=== PATIENT | female | born 1975 | race Caucasian/White ===

== ENCOUNTER → 2017-04-21 | Outpatient (CLI) | payer OTHER ==
--- NOTE | 2017-04-21 11:12 | RAD ---
Indication: Chronic pansinusitis. Axial imaging through the paranasal sinuses was performed without contrast. Sagittal and coronal reformations were also performed. The frontal sinus is clear. Postsurgical changes of bilateral ethmoidectomy is seen. The sphenoid sinus is clear. Bilateral maxillary sinuses are clear. No mucosal thickening or air-fluid levels are seen. The mastoids are well aerated. The nasal septum is midline. Impression: Postsurgical changes. There is no evidence of sinusitis. PQRS Compliance Statement: One or more of the following individualized dose reduction techniques were utilized for this examination: 1. Automated exposure control 2. Adjustment of the mA and/or kV according to patient size 3. Use of iterative reconstruction technique
== END | disposition home or self-care (01) ==
LOC: CT 09:12
PROVIDERS: ATTEND Otolaryngology
DX: J32.4 Chronic pansinusitis (principal); Z98.890 Other specified postprocedural states
CPT/HCPCS: 70486

== ENCOUNTER 2017-06-25 13:05 | Day surgery (SDC) | payer OTHER ==
[~2017-06-25 13:05] MED LIST: LIDOCAINE 1% PF 2 ML VIAL. ID; MORPHINE SULFATE 2 MG/ML DISP.SYRIN. IV; PROCHLORPERAZINE 10 MG/2 ML VIAL. IV; ceFAZolin 2GM PREMIX 2 GM/50 ML BAG IV
[2017-06-25 13:47] LABS: NEG OBC UR NEG; POS OBC UR POS; U PREG PATIENT NEGATIVE (NEG)
[2017-06-25] MEDS: IV RINGERS,LACTATED 1000ML 1,000 ML IV ×2 (13:47)
[2017-06-25] MEDS ORDERED: SUCCINYLCHOLINE 200 MG/10 ML VIAL. ×2 (14:20)
[2017-06-25] MEDS: OXYMETAZOLINE 0.05% NASAL SPRAY 30ML BOTTLE. NS ×2 (14:23)
[2017-06-25] MEDS ORDERED: ONDANSETRON PF 4 MG/2 ML VIAL. ×2 (14:24)
[2017-06-25] MEDS ORDERED: FAMOTIDINE 20 MG/2 ML VIAL ×2 (14:24)
[2017-06-25] MEDS ORDERED: DEXAMETHASONE SOD PHOS 20 MG/5 ML VIAL. ×2 (14:24)
[2017-06-25] MEDS ORDERED: PROPOFOL 20 ML IV ×2 (14:24)
[2017-06-25] MEDS ORDERED: LIDOCAINE 2% PF Vial for OR 5 ML VIAL. ×2 (14:24)
[2017-06-25] MEDS ORDERED: MIDAZOLAM HCL/PF 2 MG/2 ML VIAL. ×2 (14:24)
[2017-06-25] MEDS ORDERED: fentaNYL PF VIAL 100 MCG/2 ML VIAL ×4 (14:24→16:00)
[2017-06-25] MEDS ORDERED: MUPIROCIN 2 % NASAL OINTMENT 22GM TUBE. NS ×2 (14:46)
[2017-06-25] MEDS ORDERED: OXYMETAZOLINE 0.05% NASAL SPRAY 30ML BOTTLE. NS ×2 (14:46)
[2017-06-25] MEDS ORDERED: PHENYLEPHRINE 0.25% NASAL SPRAY 15ML BOTTLE. NS ×2 (14:46)
[2017-06-25] MEDS ORDERED: 0.9 % SODIUM CHLORIDE 50 ML VIAL. IJ ×2 (15:15)
[2017-06-25] MEDS ORDERED: VECURONIUM BOLUS 10 MG VIAL. IV ×2 (15:15)
[2017-06-25] MEDS: EPINEPHrine VIAL 30 MG/30 ML VIAL ×2 (15:18)
[2017-06-25] MEDS: LIDOCAINE 1%/EPI 1:100,000 20 ML VIAL. ×2 (15:18)
[2017-06-25] MEDS ORDERED: SEVOFLURANE > 120 MINUTES. IH ×2 (15:19)
[2017-06-25] MEDS ORDERED: NEOSTIGMINE 10 MG/10 ML VIAL. ×2 (16:41)
[2017-06-25] MEDS ORDERED: GLYCOPYRROLATE 1 MG/5 ML VIAL. ×2 (16:41)
[2017-06-25] MEDS: fentaNYL PF VIAL 100 MCG/2 ML VIAL IV ×8 (17:26→19:05)
[2017-06-25] MEDS: oxyCODONE/APAP 5/325 1 TAB TABLET PO ×2 (18:05)
[2017-06-25] MEDS: ONDANSETRON PF 4 MG/2 ML VIAL. IV ×2 (18:07)
== END 2017-06-25 19:18 | disposition home or self-care (01) ==
LOC: SURG 13:05
DX: J32.4 Chronic pansinusitis (principal); J34.3 Hypertrophy of nasal turbinates; K21.9 Gastro-esophageal reflux disease without esophagitis; M19.90 Unspecified osteoarthritis, unspecified site; F17.200 Nicotine dependence, unspecified, uncomplicated; Z87.39 Personal history of other diseases of the musculoskeletal system and connective tissue; Z72.89 Other problems related to lifestyle
CPT/HCPCS: 30520; 81025; 87071; 87075; 87186; 87205; C1713; C1769; J0171; J0330; J0690; J1100; J2250; J2405; J2704; J2710; J3010; J3490; J7120; S0028

== ENCOUNTER → 2018-03-15 | Outpatient (CLI) | payer OTHER ==
[2017-06-25 18:24] VITALS: BP 146/66
[~2018-03-15] MED LIST changes: +DOCU-109 PO; +LEVO500T59 PO; -LIDOCAINE 1% PF 2 ML VIAL. ID; -MORPHINE SULFATE 2 MG/ML DISP.SYRIN. IV; +ONDA4TAB10 SL; +OXYC-323 PO; +OXYM15MI4 NS; +PRED20TA PO; -PROCHLORPERAZINE 10 MG/2 ML VIAL. IV; -ceFAZolin 2GM PREMIX 2 GM/50 ML BAG IV
--- NOTE | 2018-03-15 16:12 | RAD ---
DATE: 03/15/2018 EXAM: MAMMO KIRSTIE SCREENING BILATERAL HISTORY: Routine screening. Baseline evaluation. COMPARISON: No prior exams. This study was interpreted with the benefit of Computerized Aided Detection (CAD). Breast Density: HETERO The breast parenchyma is heterogenously dense, which could reduce sensitivity of mammography. Breast parenchyma level C. FINDINGS: Multiple small masses bilaterally are present and smoothly marginated. No suspicious, dominant mass. No architectural distortion. No suspicious calcification cluster. IMPRESSION: Benign findings. BI-RADS CATEGORY: 2 BENIGN FINDING(S) RECOMMENDED FOLLOW-UP: 12M 12 MONTH FOLLOW-UP PQRS compliance statement: Patient information was entered into a reminder system with a target due date in one year for the next mammogram. Mammography is a sensitive method for finding small breast cancers, but it does not detect them all and is not a substitute for careful clinical examination. A negative mammogram does not negate a clinically suspicious finding and should not result in delay in biopsying a clinically suspicious abnormality. "Our facility is accredited by the [employer] Mammography Program."
== END | disposition home or self-care (01) ==
LOC: MAMMO 14:53
PROVIDERS: ATTEND Family Medicine
DX: Z12.31 Encounter for screening mammogram for malignant neoplasm of breast (principal)
CPT/HCPCS: 77063; 77067

== ENCOUNTER → 2018-08-31 | Outpatient (CLI) | payer OTHER ==
[2017-06-25 18:24] VITALS: BP 146/66
[~2018-08-31] MED LIST changes: -OXYC-323 PO; +OXYC1TAB15 PO
== END | disposition home or self-care (01) ==
LOC: LAB 02:50
PROVIDERS: ATTEND Family Medicine
DX: R74.0 Nonspecific elevation of levels of transaminase and lactic acid dehydrogenase [LDH] (principal)
CPT/HCPCS: 36415; 86705; 86709; 86803; 87340

== ENCOUNTER → 2018-09-16 | Outpatient (CLI) | payer OTHER ==
[2017-06-25 18:24] VITALS: BP 146/66
--- NOTE | 2018-09-16 09:05 | RAD ---
INDICATION: Thyromegaly COMPARISON: None. TECHNIQUE: Grayscale and color ultrasound images obtained of the thyroid. FINDINGS: Right Lobe: 44 x 14 mm. Left Lobe: 42 x 14 mm. No worrisome thyroid mass. IMPRESSION: 1. No worrisome thyroid nodules identified. Electronically signed by: Abdullahi Baird MD (09/16/2018 9:02 AM) [id number]
== END | disposition home or self-care (01) ==
LOC: US 07:08
PROVIDERS: ATTEND Family Medicine
DX: E01.0 Iodine-deficiency related diffuse (endemic) goiter (principal)
CPT/HCPCS: 76536

== ENCOUNTER → 2018-10-21 | Day surgery (SDC) | payer OTHER ==
[~2018-10-21] MED LIST changes: +CETI10TA22 PO; +HYDROmorphone 2 MG/ML VIAL IV PRN; +IV RINGERS,LACTATED 1000ML 1,000 ML IV SCH; +LIDOCAINE 1% PF 2 ML VIAL. ID PRN; +MORPHINE SULFATE 2 MG/ML VIAL. IV PRN; +PANT20TA2 PO; +PROCHLORPERAZINE 10 MG/2 ML VIAL. IV PRN; +PROPOFOL 20 ML IV ONE; +fentaNYL PF VIAL 100 MCG/2 ML VIAL IV PRN
[2018-10-21 11:38] LABS: U PREG PATIENT NEGATIVE (NEG)
[2018-10-21 13:10] VITALS: BP 135/80
== END ==
LOC: ENDOS 11:15
PROVIDERS: ATTEND Internal Medicine Gastroenterology
DX: K29.50 Unspecified chronic gastritis without bleeding (principal); K21.9 Gastro-esophageal reflux disease without esophagitis; M19.90 Unspecified osteoarthritis, unspecified site; Z72.89 Other problems related to lifestyle; Z90.49 Acquired absence of other specified parts of digestive tract; Z98.890 Other specified postprocedural states; Z80.3 Family history of malignant neoplasm of breast
CPT/HCPCS: 43235; 81025; J2704

== ENCOUNTER → 2018-11-05 | Outpatient (CLI) | payer OTHER ==
[2018-10-21 13:10] VITALS: BP 135/80
[~2018-11-05] MED LIST changes: -HYDROmorphone 2 MG/ML VIAL IV PRN; -IV RINGERS,LACTATED 1000ML 1,000 ML IV SCH; -LIDOCAINE 1% PF 2 ML VIAL. ID PRN; -MORPHINE SULFATE 2 MG/ML VIAL. IV PRN; -PROCHLORPERAZINE 10 MG/2 ML VIAL. IV PRN; -PROPOFOL 20 ML IV ONE; -fentaNYL PF VIAL 100 MCG/2 ML VIAL IV PRN
--- NOTE | 2018-11-05 15:39 | RAD ---
Gastric emptying nuclear medicine study History:Nausea with right upper quadrant abdominal pain for 6 months. Technique: After oral ingestion of a meal containing 2.1 mCi of technetium 99m sulfur colloid, anterior and posterior planar images of the upper abdomen were performed immediately and at 1 hour and 2 hour and 3 hour and 4 hour increments. Percent retention of radiotracer activity was measured and calculated at 1 hour and 2 hour and 3 hour and 4 hour increments. Half time gastric clearance was measured and calculated. Findings: Percent retention at 1 hour is 46%. Normal range is 34.8% to 91%. Percent retention at 2 hours is 26%. Normal range is 2.7% to 60%. Percent retention at 3 hours is 7%. Normal range is 0.5% to 28%. Percent retention at 4 hours is 0%. Normal range is 0% to 10%. Half time gastric clearance is 50 minutes. Normal range is 45 to 90 minutes. Impression: No delay in gastric emptying is seen. Electronically signed by: Aftab Carbajal MD (11/05/2018 3:36 PM) [place] [id number]
== END | disposition home or self-care (01) ==
LOC: NM 08:45
PROVIDERS: ATTEND Internal Medicine Gastroenterology
DX: R11.0 Nausea (principal); R10.11 Right upper quadrant pain; Z87.891 Personal history of nicotine dependence
CPT/HCPCS: 78264; A9541

== ENCOUNTER → 2018-11-24 | Outpatient (CLI) | payer OTHER ==
[2018-10-21 13:10] VITALS: BP 135/80
--- NOTE | 2018-11-24 09:44 | RAD ---
CLINICAL HISTORY: Right upper quadrant pain, elevated LFTs COMPARISON: None available. TECHNIQUE: Ultrasound of the upper abdomen was performed. FINDINGS: The liver measures 20.1 cm in length in the right mid clavicular line. Hepatic margin is smooth. Increased hepatic echogenicity with limited sonographic penetration consistent with hepatic steatosis. No obvious liver lesion although evaluation limited. Flow is seen within the portal vein. There has been a cholecystectomy. The common bile duct measures up to 0.8 cm. The spleen is is upper limits normal in size measuring 11.9 cm in length. The visualized pancreas is unremarkable although the partially obscured by overlying bowel gas.. The right kidney measures 11.1 cm in bipolar length. The left kidney measures 12.1 cm in bipolar length. No focal renal lesion. No hydronephrosis. Visualized portions of the abdominal aorta and inferior vena cava are unremarkable although the majority is obscured by overlying bowel gas. There is no free fluid in the upper abdomen. IMPRESSION: 1. Hepatomegaly and hepatic steatosis. 2. Within the constraints of cholecystectomy, no biliary ductal dilatation. 3. Spleen is top normal in size. Electronically signed by: Luis Fernando Kinney MD (11/24/2018 9:41 AM) [facility]
== END | disposition home or self-care (01) ==
LOC: US 07:40
PROVIDERS: ATTEND Internal Medicine Gastroenterology
DX: K76.0 Fatty (change of) liver, not elsewhere classified (principal); R16.0 Hepatomegaly, not elsewhere classified; R94.5 Abnormal results of liver function studies; Z90.49 Acquired absence of other specified parts of digestive tract
CPT/HCPCS: 76700

== ENCOUNTER → 2018-12-01 | Outpatient (CLI) | payer OTHER ==
[2018-10-21 13:10] VITALS: BP 135/80
[~2018-12-01] MED LIST changes: +CONTRAST GIVEN. MC PRN; +IOHEXOL 240 MG/ML 50ML VIAL. PO ONE; +IOHEXOL 300 MG/ML 100ML VIAL. IV ONE
--- NOTE | 2018-12-01 11:05 | RAD ---
CT ABD PELV W/ORAL IV CONTRAST Indication: Right-sided abdominal pain Technique: Postcontrast CT imaging was performed of the abdomen pelvis, multiplanar reconstruction images submitted. Oral contrast was also given. One or more of the following individualized dose reduction techniques were utilized for this examination: 1. Automated exposure control 2. Adjustment of the mA and/or kV according to patient size 3. Use of iterative reconstruction technique. Comparison: None Findings: There is probable diffuse hepatic steatosis. No focal abnormality is identified liver, spleen, pancreas. There has been cholecystectomy. Both kidneys enhance, no hydronephrosis. There is no adrenal nodularity. Caliber of the appendix is upper limits of normal 0.6 cm, no adjacent periappendiceal inflammatory type change. Bowel is not significantly dilated. There is no free air. There is somewhat heterogeneous appearance of the uterus and cervix, somewhat deviated to the left. There is also likely mass of the posterior uterus closer to the fundus about 3.8 cm longitudinal. There is focus of density with peripheral hyperdensity or enhancement in the right adnexal region about 2.3 cm greatest dimension, another area of somewhat round density of the right adnexa about 1.5 cm. There is very minimal free fluid in the dependent right pelvis. There is small 0.6 cm focus of nonspecific sclerosis of the T10 vertebral body. There is nonspecific sclerosis of posterior and anterior left sacroiliac joint, to lesser degree on the right. There is partial fusion of posterior left sacroiliac joint. IMPRESSION: 1. There is heterogeneity of the right adnexa, likely component of partially collapsed cyst assuming no clinical suspicion for tubo-ovarian abscess. There is also possible adjacent other complex cyst. Findings would be more accurately evaluated by ultrasound. There is nonspecific heterogeneity of the uterus and cervix, also mass of the posterior uterus closer to the fundus more commonly due to fibroid. There is trace free fluid in the dependent right pelvis. 2. There is no convincing evidence of acute appendicitis. 3. There is likely diffuse hepatic steatosis. 4. There is some sclerosis of the sacroiliac joints greater on the left, partial fusion posteriorly on the left which may be due to sequela of sacroiliitis. There is a small nonspecific sclerotic lesion of T10 vertebral body. Electronically signed by: Gene Albert MD (12/01/2018 11:01 AM) [id number]
== END | disposition home or self-care (01) ==
LOC: CT 08:51
PROVIDERS: ATTEND Internal Medicine Gastroenterology
DX: M53.3 Sacrococcygeal disorders, not elsewhere classified (principal); Z90.49 Acquired absence of other specified parts of digestive tract
CPT/HCPCS: 74177; Q9966; Q9967

== ENCOUNTER → 2018-12-16 | Outpatient (CLI) | payer OTHER ==
[2018-10-21 13:10] VITALS: BP 135/80
[~2018-12-16] MED LIST changes: -CONTRAST GIVEN. MC PRN; -IOHEXOL 240 MG/ML 50ML VIAL. PO ONE; -IOHEXOL 300 MG/ML 100ML VIAL. IV ONE
--- NOTE | 2018-12-16 16:10 | RAD ---
Transabdominal and transvaginal sonography of the pelvis Clinical indications: Abnormal CT. COMPARISON: December 01, 2018 CT study. Transabdominal sonography: Uterus is anteverted in position. The longitudinal and AP and transverse dimensions of the uterus are 8.3 cm and 4.7 cm and 6.7 cm respectively. The endometrial canal is poorly visualized. Therefore, transvaginal sonography will be performed. No adnexal masses are seen. Neither ovary is visualized. Transvaginal sonography: Nabothian cyst of the cervix is seen. The endometrial canal measures 2.7 mm in caliber which is normal. 4 uterine fibroids are seen. The largest is seen within the left posterior mid aspect measuring 4.7 cm. Second largest is seen on the right side measuring 3.1 cm. The right ovary measures 2.7 cm and 2.1 cm and 1.7 cm in size and contains an 8 mm follicular cyst. Color Doppler flow is seen within the right ovary. The left ovary measures 1.6 cm and 1.2 cm and 1.7 cm in size and is normal. Color Doppler flow is seen within left ovary. No adnexal mass or free fluid is evident. IMPRESSION: Uterine fibroids. No adnexal mass or dominant ovarian cyst is evident. There is a small follicular cyst of the right ovary measuring 8 mm. Electronically signed by: Aftab Carbajal MD (12/16/2018 4:07 PM) [id number]
== END | disposition home or self-care (01) ==
LOC: US 10:35
PROVIDERS: ATTEND Internal Medicine Gastroenterology
DX: N83.01 Follicular cyst of right ovary (principal); D25.9 Leiomyoma of uterus, unspecified; N88.8 Other specified noninflammatory disorders of cervix uteri
CPT/HCPCS: 76830; 76856

== ENCOUNTER → 2019-07-01 | Outpatient (CLI) | payer OTHER ==
[2018-10-21 13:10] VITALS: BP 135/80
[~2019-07-01] MED LIST changes: -CETI10TA22 PO; +CETI10TA24 PO
--- NOTE | 2019-07-01 16:07 | CARD ---
MR#: [id number] Date of Study: 07/01/2019 Ordering Physician: MARIE PICKETT, Referring Physician: MARIE PICKETT, Tech: Tavares Zaragoza [facility] APPROVED REPORT INDICATION Chest Pain Reason : Patient complained of pain PROCEDURE The patient underwent an Exercise Stress Test using the Hema Protocol. Blood pressure, heart rate, a nd EKG were monitored. An Echocardiogram was performed by refresh technician in four stages in quad fashion. At peak stress four se lected images were obtained and placed side by side with resting images for comparison. STRESS ECHO FINDINGS The resting Echocardiogram showed normal left ventricular systolic contractility with an estimated Ej ection Fraction of about 55 %. The Resting Echocardiogram showed normal augmentation of myocardial wall segments using a 16 segment model. The Stress Echocardiogram showed normal augmentation of myocardial wall segments using a 16 segment m devin. The Stress Echocardiogram left ventricular systolic contractility has an estimated Ejection Fraction of about 65-70%. Test Type: Exercise Stress Nurse/Tech: Ashley Renner R.N. Test Indications: dyspnea Cardiac History and Allergies: none Medications: see ehr Medical History: see ehr Resting ECG: sr Resting Heart Rate: 83 bpm Resting Blood Pressure: 118/76mmHg Pretest Chest Pain: No chest pain Nurse/Tech Notes lungs cta, heart tones regular Stress Symptoms No chest pain or symptoms. POST EXERCISE Reason for Termination: Reached target heart rate Target HR: Yes Max HR: 161 bpm 92% of Maximum Predicted HR: 175 bpm Exercise duration: 7:26 min:sec, 3 Stage Exercise capacity: 10.1METs Max Blood Pressure: 151/67mmHg Blood Pressure response to exercise: Normal blood pressure response during stress. Heart Rate response to exercise: normal Chest Pain: No. Arrhythmia: No. ST Change: Yes. ST depression noted in V4-6 in Stage 2, may have been wandering baseline changes with exercise. INTERPRETATION Stress EKG Conclusion: No evidence of stress induced EKG changes. STRESS ECG Stress EKG shows no significant changes. Preliminary Notification Critical Value: No <Conclusion> Normal resting EKG. Normal baseline wall motion and EF at 55% Normal stress EKG with average exercise capacity at 10.1 Mets Normal stress echo with appropriate augmentation of all horton and EF of 70% Low risk study Signed by : Marie Pickett, Electronically Approved : 07/01/2019 16:07:08
== END | disposition home or self-care (01) ==
LOC: ECHO 12:47
PROVIDERS: ATTEND Internal Medicine Cardiovascular Disease
DX: R07.9 Chest pain, unspecified (principal)
CPT/HCPCS: 93017; 93350

== ENCOUNTER → 2019-07-11 | Outpatient (CLI) | payer OTHER ==
[2018-10-21 13:10] VITALS: BP 135/80
--- NOTE | 2019-07-11 19:01 | RAD ---
BILATERAL SCREENING MAMMOGRAM, 3-D History: Routine screening. Comparison: 03/15/2018. Technique: MLO and CC digital tomosynthesis (3D) images obtained. Radiologist reviewed these images on dedicated workstation. Findings: Breast Tissue Density C : The breasts are heterogeneously dense, which may obscure small masses. There are no dominant masses, suspicious microcalcifications, or architectural distortion. Multiple small masses bilaterally are stable. IMPRESSION: No mammographic evidence of malignancy. Recommend routine screening. BI-RADS category 1: Negative. The images were reviewed with computer-aided detection. Patient information is entered into reminder system with a target due date for the next screening mammogram. Mammography is the most sensitive method for finding small breast cancers, but it does not detect them all and is not a substitute for careful clinical examination. A negative mammogram does not negate a clinically suspicious finding and should not result in delay in biopsying a clinically suspicious abnormality. "Our facility is accredited by the [employer] Mammography Program." Electronically signed by: Renaldo Champion MD (07/11/2019 6:58 PM) [id number]
== END ==
LOC: MAMMO 09:47
PROVIDERS: ATTEND Family Medicine
DX: Z12.31 Encounter for screening mammogram for malignant neoplasm of breast (principal)
CPT/HCPCS: 77063; 77067

== ENCOUNTER → 2020-02-29 | Outpatient (CLI) | payer OTHER ==
[2018-10-21 13:10] VITALS: BP 135/80
[~2020-02-29] MED LIST changes: -CETI10TA24 PO; +CETI10TA74 PO
== END ==
LOC: LAB 14:13
PROVIDERS: ATTEND Internal Medicine Pulmonary Disease
DX: Z20.828 Contact with and (suspected) exposure to other viral communicable diseases (principal)
CPT/HCPCS: U0003

== ENCOUNTER → 2020-07-17 | Outpatient (CLI) | payer OTHER ==
[2018-10-21 13:10] VITALS: BP 135/80
--- NOTE | 2020-07-17 16:07 | RAD ---
DATE: 07/17/2020 3:03 PM EXAM: MAMMO KIRSTIE SCREENING BILATERAL HISTORY: Screening COMPARISON: 07/11/2019, 03/15/2018 Bilateral CC and MLO views of the breasts were performed. Bilateral breast tomosynthesis was performed in CC and MLO projections. This study was interpreted with the benefit of Computerized Aided Detection (CAD). FINDINGS: Breast Density: HETERO The breast parenchyma Is heterogeneously dense, which could reduce sensitivity of mammography. Breast parenchyma level C No suspicious masses, microcalcifications or architectural distortion is present to suggest malignancy in either breast. The visualized axillae are unremarkable. IMPRESSION: No mammographic evidence of malignancy. BI-RADS CATEGORY: 1 NEGATIVE RECOMMENDED FOLLOW-UP: 12M 12 MONTH FOLLOW-UP Annual screening mammography is recommended, unless clinically indicated sooner based on symptoms or change in physical exam. PQRS compliance statement: Patient information was entered into a reminder system with a target due date for the next mammogram. Mammography is a sensitive method for finding small breast cancers, but it does not detect them all and is not a substitute for careful clinical examination. A negative mammogram does not negate a clinically suspicious finding and should not result in delay in biopsying a clinically suspicious abnormality. "Our facility is accredited by the [employer] Mammography Program."
== END ==
LOC: MAMMO 14:36
PROVIDERS: ATTEND Family Medicine
DX: Z12.31 Encounter for screening mammogram for malignant neoplasm of breast (principal)
CPT/HCPCS: 77063; 77067

== ENCOUNTER → 2020-08-21 | Outpatient (CLI) | payer OTHER ==
[2018-10-21 13:10] VITALS: BP 135/80
[2020-08-21 10:30] LABS: ALBUMIN 3.6 g/dL (3.4-5.0); CALCIUM 8.6 mg/dL (8.5-10.1); CREATININE 0.7 mg/dL (0.6-1.0); GFR 90.1; POTASSIUM 4.2 mmol/L (3.5-5.1); TOTAL BILIRUBIN 0.3 mg/dL (0.2-1.0); TOTAL PROTEIN 7.2 g/dL (6.4-8.2)
[2020-08-21 10:32] LABS: HEMATOCRIT 40.1 % (36.0-47.0); HEMOGLOBIN 13.7 g/dL (12.0-15.5); RED BLOOD COUNT 4.3 x10^6/uL (3.50-5.40); RED CELL DISTRIBUTION WIDTH 12.7 % (11.5-14.5); WHITE BLOOD COUNT 6.8 x10^3/uL (4.0-11.0)
== END ==
LOC: LAB 09:28
PROVIDERS: ATTEND Family Medicine
DX: Z13.220 Encounter for screening for lipoid disorders (principal); K60.0 Acute anal fissure; E01.0 Iodine-deficiency related diffuse (endemic) goiter; M25.50 Pain in unspecified joint; K76.0 Fatty (change of) liver, not elsewhere classified
CPT/HCPCS: 36415; 80053; 82465; 84443; 85027

== ENCOUNTER → 2020-09-14 | Outpatient (CLI) | payer OTHER ==
[2018-10-21 13:10] VITALS: BP 135/80
[2020-09-15 00:13] LABS: HEMOGLOBIN A1C 6.6 % (4.8-5.6)
== END ==
LOC: LAB 08:53
PROVIDERS: ATTEND Family Medicine
DX: R73.9 Hyperglycemia, unspecified (principal)
CPT/HCPCS: 36415; 83036

== ENCOUNTER → 2020-11-09 | Outpatient (CLI) | payer OTHER ==
[2018-10-21 13:10] VITALS: BP 135/80
[2020-11-10 00:13] LABS: HEMOGLOBIN A1C 6.8 % (4.8-5.6)
== END ==
LOC: LAB 08:24
PROVIDERS: ATTEND Family Medicine
DX: R73.09 Other abnormal glucose (principal)
CPT/HCPCS: 36415; 83036

== ENCOUNTER → 2021-01-16 | Day surgery (SDC) | payer OTHER ==
[~2021-01-16] VITALS: Ht 162.6 cm; Wt 90.4 kg
[~2021-01-16] MED LIST changes: +CRESTOR5 MG PO; +IV RINGERS,LACTATED 1000ML 1,000 ML IV SCH; +METF-658 PO; +PROPOFOL 10 MG/ML (20ML) VIAL. IV ONE
[2021-01-16 06:55] VITALS: BP 144/81
[2021-01-16 08:00] VITALS: BP 124/73
== END | disposition home or self-care (01) ==
LOC: ENDOS 06:32
PROVIDERS: ATTEND Internal Medicine Gastroenterology
DX: Z12.11 Encounter for screening for malignant neoplasm of colon (principal); K64.0 First degree hemorrhoids; K63.89 Other specified diseases of intestine; G47.30 Sleep apnea, unspecified; E66.9 Obesity, unspecified; K21.9 Gastro-esophageal reflux disease without esophagitis; M19.90 Unspecified osteoarthritis, unspecified site; Z87.891 Personal history of nicotine dependence; Z79.84 Long term (current) use of oral hypoglycemic drugs; Z79.899 Other long term (current) drug therapy; Z90.49 Acquired absence of other specified parts of digestive tract; Z98.890 Other specified postprocedural states; Z72.89 Other problems related to lifestyle; Z80.0 Family history of malignant neoplasm of digestive organs
CPT/HCPCS: 45378; 81025; J2704

== ENCOUNTER → 2021-05-16 | Outpatient (CLI) | payer OTHER ==
[2021-01-16 08:00] VITALS: BP 124/73
[~2021-05-16] MED LIST changes: -IV RINGERS,LACTATED 1000ML 1,000 ML IV SCH; -PROPOFOL 10 MG/ML (20ML) VIAL. IV ONE
[2021-05-16 10:00] LABS: ALBUMIN 3.5 g/dL (3.4-5.0); CALCIUM 8.5 mg/dL (8.5-10.1); CHOLESTEROL/HDL RATIO 2.9; CREATININE 0.7 mg/dL (0.6-1.0); GFR 89.7; POTASSIUM 3.7 mmol/L (3.5-5.1); TOTAL BILIRUBIN 0.2 mg/dL (0.2-1.0)
--- NOTE | 2021-05-16 15:50 | RAD ---
EXAM: Pelvis and left hip, 3 views. HISTORY: Pain. COMPARISON: None. FINDINGS: A frontal view the pelvis and 2 views of the left hip are obtained. There is no fracture, d islocation or subluxation. There are tiny os acetabuli. The femoral heads are normal in configuration . IMPRESSION: No acute osseous finding. Electronically signed by: Fatou Oates MD (05/16/2021 3:47 PM) [id number]
[2021-05-16 21:13] LABS: CREAT RD UR 362.9 mg/dL (Not Estab.); MICROALB RD UR 40.8 ug/mL (Not Estab.)
[2021-05-16 23:08] LABS: HEMOGLOBIN A1C 6.7 % (4.8-5.6)
== END ==
LOC: LAB 08:52
PROVIDERS: ATTEND Family Medicine
DX: E11.9 Type 2 diabetes mellitus without complications (principal); E78.00 Pure hypercholesterolemia, unspecified; M25.552 Pain in left hip
CPT/HCPCS: 73502; 80053; 80061; 82043; 82570; 83036